=== PATIENT | male | born 1955 | race Caucasian/White ===

== ENCOUNTER → 2016-11-23 | Outpatient (CLI) | payer OTHER ==
[~2016-11-23] MED LIST: ALDACTONE 25MG25 MG PO; ASPIRIN CHEWABL81 MG PO; BENTYL 20MG TAB20 MG PO; COMBIVENT INHALE4 GM INH; LEVAQUIN750 MG PO; LOPRESSOR 25 MG25 MG PO; PROTONIX 40 MG40 M1 PO; PROVENTIL HFA 61 INH INH; RANEXA500 MG PO; SYMBICORT 16010.2 GM INH; VENTOLIN/PROVE0.5 ML INH
== END ==
LOC: US 11-05 09:30 → KOH-I 11:25 → US 11:30
DX: D69.6 Thrombocytopenia, unspecified (principal)
CPT/HCPCS: 76705

== ENCOUNTER 2016-12-08 17:40 | Emergency (ER) | payer OTHER ==
[2016-12-25] MEDS ORDERED: PROVENTIL HFA 61 INH INH (05:43)
== END 2016-12-08 20:51 | disposition left against medical advice (07) ==
LOC: ER1 17:40
DX: R07.89 Other chest pain (principal); I11.9 Hypertensive heart disease without heart failure; J44.9 Chronic obstructive pulmonary disease, unspecified; K21.9 Gastro-esophageal reflux disease without esophagitis; F17.210 Nicotine dependence, cigarettes, uncomplicated; Z79.82 Long term (current) use of aspirin; Z79.899 Other long term (current) drug therapy
CPT/HCPCS: 36415; 36600; 82803; 93005; 94664; 99285

== ENCOUNTER 2016-12-14 13:30 | Inpatient (IN) | payer OTHER ==
[~2016-12-14] VITALS: Ht 175.3 cm; Wt 98.4 kg
[2016-12-14 14:11] LABS: RED BLOOD COUNT 3.59 M/UL (4.20-5.50); WHITE BLOOD COUNT 6.9 K/UL (4.5-11.0)
[2016-12-14 14:20] LABS: BUN/CREATININE RATIO 23 (0-10)
[2016-12-14] MEDS ORDERED: ASPIRIN CHEWABL81 MG PO (21:37)
[2016-12-14] MEDS ORDERED: RANEXA500 MG PO (21:37)
[2016-12-14] MEDS ORDERED: ALDACTONE 25MG25 MG PO (21:38)
[2016-12-14] MEDS ORDERED: PROTONIX 40 MG40 M1 PO (21:38)
[2016-12-14] MEDS ORDERED: BENTYL 20MG TAB20 MG PO (21:39)
[2016-12-14] MEDS ORDERED: COMBIVENT INHALE4 GM INH (21:41)
[2016-12-14] MEDS ORDERED: VENTOLIN/PROVE0.5 ML INH (21:42)
[2016-12-15 04:19] LABS: HEMOGLOBIN 11.1 gm/dl (14.0-17.5); RED BLOOD COUNT 3.28 M/UL (4.20-5.50)
[2016-12-15 04:39] LABS: BUN/CREATININE RATIO 23 (0-10)
[2016-12-16 03:52] LABS: HEMOGLOBIN 11.4 gm/dl (14.0-17.5); RED BLOOD COUNT 3.39 M/UL (4.20-5.50)
[2016-12-16 03:55] LABS: WHITE BLOOD COUNT 11.7 K/UL (4.5-11.0)
[2016-12-16 04:02] LABS: BUN/CREATININE RATIO 26 (0-10)
[2016-12-17 06:49] LABS: HEMOGLOBIN 11.8 gm/dl (14.0-17.5); RED BLOOD COUNT 3.53 M/UL (4.20-5.50); WHITE BLOOD COUNT 12.1 K/UL (4.5-11.0)
[2016-12-17 07:05] LABS: BUN/CREATININE RATIO 32 (0-10)
[2016-12-18] MEDS ORDERED: LEVAQUIN750 MG PO (14:24)
[2016-12-18] MEDS ORDERED: SYMBICORT 16010.2 GM INH (14:25)
[2016-12-18] MEDS ORDERED: LOPRESSOR 25 MG25 MG PO (21:40)
[2016-12-25] MEDS ORDERED: PROVENTIL HFA 61 INH INH (05:43)
== END 2016-12-18 15:44 | disposition home or self-care (01) | DRG 871 ==
LOC: ER1 13:30 → ZEROF 17:00 → PROG CARE 22:41 → M/S 12-16 16:11
PROVIDERS: Emergency Medicine; ADMIT Internal Medicine
PROC: 5A09457 Assistance with Respiratory Ventilation, 24-96 Consecutive Hours, Continuous Positive Airway Pressure (ICD-10-PCS; principal; 2016-12-14)
DX: A41.9 Sepsis, unspecified organism (principal); J18.9 Pneumonia, unspecified organism; J96.21 Acute and chronic respiratory failure with hypoxia; J44.0 Chronic obstructive pulmonary disease with (acute) lower respiratory infection; J44.1 Chronic obstructive pulmonary disease with (acute) exacerbation; D61.818 Other pancytopenia; K76.6 Portal hypertension; E87.2 Acidosis; E87.1 Hypo-osmolality and hyponatremia; K70.31 Alcoholic cirrhosis of liver with ascites; B19.20 Unspecified viral hepatitis C without hepatic coma; Z87.891 Personal history of nicotine dependence; D69.59 Other secondary thrombocytopenia; F10.21 Alcohol dependence, in remission; R49.0 Dysphonia; R10.9 Unspecified abdominal pain; Z79.82 Long term (current) use of aspirin; Z79.51 Long term (current) use of inhaled steroids; Z79.899 Other long term (current) drug therapy; Z99.81 Dependence on supplemental oxygen
CPT/HCPCS: ECHO; 36415; 36600; 70450; 71010; 80048; 80053; 80074; 82248; 82272; 82550; 82553; 82803; 83605; 83690; 83874; 83880; 84484; 85025; 85027; 85610; 85730; 87040; 93005; 93306; 94640; 94660; 94664; 94760; 96374; 99285; J1956; J2920; J2930; J7030; J7509